=== PATIENT | female | born 1990 | race African-American/Black ===

== ENCOUNTER 2018-07-01 22:45 | Inpatient (IN) | payer MEDICAID ==
[~2018-07-01] VITALS: Ht 175.3 cm; Wt 98.0 kg
[2018-07-01] MEDS ORDERED: LACTATED RINGERS 1,000 ML IV SCH (23:30)
[2018-07-01] MEDS ORDERED: TERBUTALINE SULFATE 1MG/ML VIAL SUBCUT PRN (23:30)
[2018-07-02] MEDS ORDERED: BUTORPHANOL TARTRATE 2 MG/ML VIAL IV PRN
[2018-07-02] MEDS ORDERED: DEXT 5%/LR + PITOCIN 20UNITS/L 1,000 ML IV SCH ×2 (00:13→03:36)
[2018-07-02] MEDS ORDERED: LACTATED RINGERS 1,000 ML IV SCH (00:13)
[2018-07-02] MEDS ORDERED: AMPICILLIN 2,000 MG in SODIUM CHLORIDE 0.9% 100 ML IV SCH (00:15)
[2018-07-02] MEDS ORDERED: LIDOCAINE HCL 1% 20ML VIAL (Pyxis) INJ INFIL SCH (00:15)
[2018-07-02] MEDS ORDERED: MISOPROSTOL 100MCG TABLET VG SCH (00:15)
[2018-07-02] MEDS ORDERED: CARBOPROST TROMETHAMINE 250 MCG/ML AMPUL IM PRN (00:15)
[2018-07-02] MEDS ORDERED: NALOXONE HCL 0.4 MG/ML 1ML VIAL IM PRN (00:15)
[2018-07-02] MEDS ORDERED: METHYLERGONOVINE MALEATE 0.2 MG/ML IM PRN (00:15)
[2018-07-02 00:46] LABS: BASOPHILS % 0.3 % (0.0-2.0); EOSINOPHILS % 0.2 % (0.0-5.0); HEMATOCRIT. 36.4 % (36.0-48.0); MEAN CORPUSCULAR HEMOGLOBIN 27.6 pg (28.0-32.0); MEAN CORPUSCULAR VOLUME 83.8 fL (81.0-99.0); MEAN PLATELET VOLUME 11.4 fl (7.4-10.4); MONOCYTES % 6.7 % (2.0-8.0); NEUTROPHILS % 71.8 % (40.0-76.0); PLATELET 97 x1000/uL (130-400); RED BLOOD CELL COUNT 4.34 mill/uL (4.2-5.4)
[2018-07-02 00:47] LABS: CHLORIDE 104 mEq/L (98-107)
[2018-07-02 00:53] LABS: PARTIAL THROMBOPLASTIN TIME 23.7 sec (23.4-31.0); PROTHROMBIN TIME 9.6 sec (9.1-11.1)
[2018-07-02 01:27] LABS: HEPATITIS B SURFACE ANTIGEN NEGATIVE
[2018-07-02] MEDS ORDERED: BUPIVACAINE HCL/NS/PF EPIDURAL 100 ML EP SCH (02:00)
[2018-07-02] MEDS ORDERED: FENTANYL CITRATE/PF 50MCG/ML 5ML VIAL ONE (02:12)
[2018-07-02] MEDS ORDERED: BUPIVACAINE HCL/PF 0.25% (2.5MG/ML) 10ML ONE (02:13)
[2018-07-02 03:18] LABS: CLARITY URINE CLEAR (CLEAR); COLOR URINE YELLOW (YELLOW); KETONES URINE 1+ (NEGATIVE); LEUKOCYTE ESTERASE URINE NEGATIVE (NEGATIVE); NITRITE URINE NEGATIVE (NEGATIVE); OCCULT BLOOD URINE 1+ (NEGATIVE); PH URINE 5.5 (4.5-8.0); PROTEIN URINE 1+ (NEGATIVE); SPECIFIC GRAVITY URINE 1.024 (1.005-1.030)
[2018-07-02 03:43] LABS: *BARBITURATES SCREEN URINE NEGATIVE (NEGATIVE); *BENZODIAZEPINES SCREEN URINE NEGATIVE (NEGATIVE); *COCAINE SCREEN URINE NEGATIVE (NEGATIVE)
[2018-07-02 03:44] LABS: CANNABINOID URINE SCREEN NEGATIVE (NEGATIVE); METHADONE URINE SCREEN NEGATIVE (NEGATIVE); OPIATES URINE SCREEN NEGATIVE (NEGATIVE); PHENCYCLIDINE URINE SCREEN NEGATIVE (NEGATIVE)
[2018-07-02] MEDS ORDERED: HEMORRHOIDAL SUPP PR PRN (03:45)
[2018-07-02] MEDS ORDERED: ACETAMINOPHEN WITH CODEINE 300/30MG TABLET PO PRN ×2 (03:45)
[2018-07-02] MEDS ORDERED: BENZOCAINE/LANOLIN/ALOE VERA SPRAY TOP PRN (03:45)
[2018-07-02] MEDS ORDERED: GLYCERIN/WITCH HAZEL LEAF MEDICATED PAD TOP PRN (03:45)
[2018-07-02] MEDS ORDERED: BISACODYL 10MG SUPP PR PRN (03:45)
[2018-07-02] MEDS ORDERED: IBUPROFEN 400MG TABLET PO PRN (03:45)
[2018-07-02 03:51] LABS: *AMPHETAMINES SCREEN URINE PRESUMTIVE POSITIVE (NEGATIVE)
[2018-07-02 04:50] VITALS: BP 159/95
[2018-07-02] MEDS ORDERED: AMPICILLIN 1,000 MG in SODIUM CHLORIDE 0.9% 50 ML IV SCH (07:00)
[2018-07-02] MEDS: SIMETHICONE 80MG TABLET CHEW PO SCH ×2 (08:27→13:00)
[2018-07-02] MEDS ORDERED: PRENATAL VIT/FE FUMARATE/FA TABLET PO SCH (09:00)
[2018-07-02] MEDS ORDERED: DOCUSATE SODIUM 100MG CAPSULE PO SCH (21:00)
[2018-07-03] MEDS ORDERED: FERROUS SULFATE 325MG TABLET PO SCH (07:30)
[2018-07-03] MEDS ORDERED: LITHIUM CARBONATE 150 MG CAPSULE PO SCH (09:00)
[2018-07-03] MEDS ORDERED: QUETIAPINE FUMARATE 100MG TABLET PO SCH (09:00)
[2018-07-06 13:08] LABS: AMPHETAMINE CONF URINE Positive (.)
== END 2018-07-02 13:30 | disposition left against medical advice (07) | DRG 560 ==
LOC: 8 EST LDRP 22:45 → OBSVTOIN 22:45 → 8EST 07-02 04:00
PROVIDERS: ADMIT Obstetrics & Gynecology; ATTEND Obstetrics & Gynecology
PROC: 3E0R3BZ Introduction of Anesthetic Agent into Spinal Canal, Percutaneous Approach (ICD-10-PCS; principal; 2018-07-02)
PROC: 10E0XZZ Delivery of Products of Conception, External Approach (ICD-10-PCS; 2018-07-02)
PROC: 00HU33Z Insertion of Infusion Device into Spinal Canal, Percutaneous Approach (ICD-10-PCS; 2018-07-02)
DX: O77.0 Labor and delivery complicated by meconium in amniotic fluid (principal); O99.344 Other mental disorders complicating childbirth; F32.9 Major depressive disorder, single episode, unspecified; O34.211 Maternal care for low transverse scar from previous cesarean delivery; Z37.0 Single live birth; Z3A.36 36 weeks gestation of pregnancy
CPT/HCPCS: 36415; 76805; 76818; 80305; 80307; 80359; 84550; 85384; 86592; 86703; 86762; 86850; 86900; 87340; 96372; 99281; J0290; J0595; J2310; J2590; J3010; J3105; J3490; J7050; A4315

== ENCOUNTER 2019-02-01 12:22 | Emergency (ER) | payer MEDICAID ==
[~2019-02-01] VITALS: Ht 167.6 cm; Wt 72.0 kg
[2019-02-01] MEDS ORDERED: IBUPROFEN 600MG TABLET PO ONE (12:45)
[2019-02-01] MEDS ORDERED: TETANUS, DIPHTHERIA, PERTUSSIS VAC/PF 0.5ML (>7YR OLD) IM ONE (12:45)
[2019-02-01] MEDS ORDERED: LORAZEPAM 1MG TABLET PO ONE (12:45)
[2019-02-01] MEDS ORDERED: BACITRACIN ZINC OINT UDPKT TOP ONE (12:45)
[2019-02-01] MEDS ORDERED: LIDOCAINE HCL/PF 1% 10 MG/ML 5ML VIAL IJ ONE (12:45)
[2019-02-01 15:40] VITALS: BP 122/77
== END 2019-02-01 15:46 | disposition home or self-care (01) ==
LOC: ER 12:45
DX: S81.811A Laceration without foreign body, right lower leg, initial encounter (principal); S50.811A Abrasion of right forearm, initial encounter; S00.81XA Abrasion of other part of head, initial encounter; M31.1 Thrombotic microangiopathy; Y00.XXXA Assault by blunt object, initial encounter; Y93.89 Activity, other specified; Y92.89 Other specified places as the place of occurrence of the external cause; Y99.8 Other external cause status
CPT/HCPCS: 12002; 72125; 73090; 73590; 90471; 90715; 99284; J3490; Z7610